=== PATIENT | female | born 1950 | race Caucasian/White ===

== ENCOUNTER 2020-10-05 16:25 | Observation (INO) ==
[2020-10-05] MEDS ORDERED: hydrALAZINE 20 mg/ml 1 ML Vial IV IV SLOW PU ONE (17:42)
[2020-10-05 18:40] LABS: ABS Eosinophils 0.1 10^3/ul (0-0.6); ABS Lymphocytes 0.9 10^3/ul (1.0-4.8); ABS Monocytes 0.3 10^3/ul (0-0.8); ABS Neutrophils 6.7 10^3/ul (1.5-7.7); Eosinophil % 0.9 %; Hematocrit 47 % (35-47); Lymphocyte % 11.6 %; Mean Corpuscular HGB Conc 32 g/dL (31-36); Mean Corpuscular Hemoglobin 27 pg (27-31); Mean Corpuscular Volume 83 fL (80-97); Mean Platelet Volume 7.6 fL (7.4-10.4); Platelet Count 229 10^3/uL (150-450); Red Blood Count 5.64 10^6 /uL (3.70-4.87); Red Cell Distribution Width 14 % (10-15); White Blood Count 8.1 10^3/uL (3.5-10.8)
[2020-10-05 18:58] LABS: INR 1.02 (0.82-1.09)
[2020-10-05 19:04] LABS: ALT 11 U/L (7-52); AST 20 U/L (13-39); Albumin 4.3 g/dL (3.2-5.2); Albumin/Globulin Ratio 1.4 (1-3); Alkaline Phosphatase 60 U/L (34-104); Anion Gap 11 mmol/L (2-11); BUN/Creatinine Ratio 17.3 (8-20); Blood Urea Nitrogen 14 mg/dL (6-24); CO2 Carbon Dioxide 24 mmol/L (22-32); Calcium 9.5 mg/dL (8.6-10.3); Chloride 98 mmol/L (101-111); EGFR African American 84.6 (>60); EGFR Non-African American 69.9 (>60); Glucose 110 mg/dL (70-100); Potassium 3.4 mmol/L (3.5-5.0); Sodium 133 mmol/L (135-145); Total Protein 7.3 g/dL (6.4-8.9)
[2020-10-05] MEDS ORDERED: NS 0.9% 1000 ml BAG 1,000 ML IV ONE (19:28)
[2020-10-05] MEDS ORDERED: Potassium Chlor 20 meq TAB.ER PO ONE (20:14)
[2020-10-05 20:23] LABS: Troponin I 0.69 ng/mL (<0.03)
[2020-10-05] MEDS ORDERED: Iohexol 350 (CONTRAST) 500 ML MDV IV ONE (20:53)
[2020-10-05] MEDS ORDERED: Heparin - STEMI 5,000 UNITS/ML 1 ml VIAL IV ONE (23:52)
[2020-10-06] MEDS ORDERED: Enoxaparin 40 MG/0.4 ML SYR SUBCUT SCH
[2020-10-06] MEDS ORDERED: Heparin DRIP 25,000 UNITS BAG 25,000 UNITS/500 ML BAG IV SCH (00:15)
[2020-10-06] MEDS ORDERED: Heparin 5000 UNITS/ML 1 mL VIAL IV SCH (01:00)
[2020-10-06 01:19] LABS: ABS Basophils 0.1 10^3/ul (0-0.2); ABS Eosinophils 0.1 10^3/ul (0-0.6); ABS Lymphocytes 1.1 10^3/ul (1.0-4.8); ABS Monocytes 0.4 10^3/ul (0-0.8); ABS Neutrophils 7.6 10^3/ul (1.5-7.7); Eosinophil % 0.6 %; Hematocrit 43 % (35-47); Hemoglobin 14.5 g/dL (12.0-16.0); Lymphocyte % 11.9 %; Mean Corpuscular HGB Conc 34 g/dL (31-36); Mean Corpuscular Hemoglobin 28 pg (27-31); Mean Corpuscular Volume 82 fL (80-97); Mean Platelet Volume 7.7 fL (7.4-10.4); Platelet Count 245 10^3/uL (150-450); Red Blood Count 5.27 10^6 /uL (3.70-4.87); Red Cell Distribution Width 14 % (10-15); White Blood Count 9.3 10^3/uL (3.5-10.8)
[2020-10-06 01:41] LABS: Troponin I 1.29 ng/mL (<0.03)
[2020-10-06 01:55] LABS: Cholesterol 232 mg/dL; HDL Cholesterol 82.4 mg/dL; LDL Cholesterol 134 mg/dL; Magnesium 1.9 mg/dL (1.9-2.7); Triglycerides 78 mg/dL
[2020-10-06] MEDS: CMC:Rosuvastatin 20 mg TAB (NF) PO SCH ×2 (02:01→22:50)
[2020-10-06 05:38] LABS: EGFR African American 83.4 (>60); EGFR Non-African American 68.9 (>60)
[2020-10-06 05:41] LABS: ABS Basophils 0.1 10^3/ul (0-0.2); ABS Eosinophils 0.1 10^3/ul (0-0.6); ABS Lymphocytes 1.3 10^3/ul (1.0-4.8); ABS Monocytes 0.6 10^3/ul (0-0.8); ABS Neutrophils 5.7 10^3/ul (1.5-7.7); Eosinophil % 1.4 %; Hematocrit 41 % (35-47); Hemoglobin 13.2 g/dL (12.0-16.0); Lymphocyte % 16.8 %; Mean Corpuscular HGB Conc 33 g/dL (31-36); Mean Corpuscular Hemoglobin 27 pg (27-31); Mean Corpuscular Volume 83 fL (80-97); Mean Platelet Volume 7.6 fL (7.4-10.4); Platelet Count 227 10^3/uL (150-450); Red Blood Count 4.91 10^6 /uL (3.70-4.87); Red Cell Distribution Width 14 % (10-15); White Blood Count 7.7 10^3/uL (3.5-10.8)
[2020-10-06 06:01] LABS: Anion Gap 6 mmol/L (2-11); BUN/Creatinine Ratio 13.8 (8-20); Blood Urea Nitrogen 12 mg/dL (6-24); CO2 Carbon Dioxide 23 mmol/L (22-32); Calcium 8.6 mg/dL (8.6-10.3); Chloride 105 mmol/L (101-111); EGFR African American 77.9 (>60); EGFR Non-African American 64.4 (>60); Glucose 100 mg/dL (70-100); Potassium 4.4 mmol/L (3.5-5.0); Sodium 134 mmol/L (135-145)
[2020-10-06 06:04] LABS: Troponin I 1.32 ng/mL (<0.03)
[2020-10-06 08:23] LABS: Creatine Kinase 254 U/L (10-223)
[2020-10-06 08:23] LABS: Creatine Kinase 187 U/L (10-223)
[2020-10-06 08:23] LABS: Creatine Kinase 207 U/L (10-223)
[2020-10-06 08:29] LABS: CKMB ng/mL 7.1 ng/mL (0.6-6.3)
[2020-10-06 08:29] LABS: CKMB ng/mL 17.5 ng/mL (0.6-6.3)
[2020-10-06 12:33] LABS: CKMB ng/mL 15.6 ng/mL (0.6-6.3)
[2020-10-06] MEDS ORDERED: Gadoteridol (CONTRAST) 279.3 MG/ML 10 ML IV ONE (12:33)
[2020-10-06 12:34] LABS: Troponin I 1.34 ng/mL (<0.03)
[2020-10-06 12:46] LABS: Creatine Kinase 269 U/L (10-223)
[2020-10-06 18:41] LABS: Troponin I 2.58 ng/mL (<0.03)
[2020-10-06 23:31] LABS: Troponin I 2.87 ng/mL (<0.03)
[2020-10-07 06:36] LABS: ABS Eosinophils 0.4 10^3/ul (0-0.6); ABS Lymphocytes 1.4 10^3/ul (1.0-4.8); ABS Monocytes 0.6 10^3/ul (0-0.8); ABS Neutrophils 5.2 10^3/ul (1.5-7.7); Eosinophil % 4.7 %; Hematocrit 40 % (35-47); Lymphocyte % 18.2 %; Mean Corpuscular HGB Conc 33 g/dL (31-36); Mean Corpuscular Hemoglobin 27 pg (27-31); Mean Corpuscular Volume 83 fL (80-97); Mean Platelet Volume 7.6 fL (7.4-10.4); Nucleated Red Blood Cells % 0.1; Platelet Count 221 10^3/uL (150-450); Red Blood Count 4.79 10^6 /uL (3.70-4.87); Red Cell Distribution Width 14 % (10-15); White Blood Count 7.6 10^3/uL (3.5-10.8)
[2020-10-07 06:56] LABS: Troponin I 1.53 ng/mL (<0.03)
[2020-10-07 07:58] LABS: Anion Gap 8 mmol/L (2-11); BUN/Creatinine Ratio 17.3 (8-20); Blood Urea Nitrogen 17 mg/dL (6-24); CO2 Carbon Dioxide 22 mmol/L (22-32); Calcium 8.7 mg/dL (8.6-10.3); Chloride 106 mmol/L (101-111); EGFR African American 67.9 (>60); EGFR Non-African American 56.1 (>60); Glucose 102 mg/dL (70-100); Potassium 4.3 mmol/L (3.5-5.0); Sodium 136 mmol/L (135-145)
[2020-10-07 11:31] VITALS: BP 122/71
== END 2020-10-07 13:35 | disposition home or self-care (01) ==
LOC: MEDTELE 16:25 → ED 16:25 → MEDTELE 10-06 00:40
PROVIDERS: ADMIT Internal Medicine; ATTEND Internal Medicine